=== PATIENT | male | born 1990 | race Caucasian/White ===

== ENCOUNTER 2023-01-09 17:26 | Emergency (ER) | payer OTHER, SELFPAY ==
[2023-01-09 17:34] VITALS: BP 141/113; PULSE 88; RESP 16; TEMP 36.7; O2SAT 98
--- NOTE | 2023-01-09 17:37 | PC.NURSE ---
Pt is 4 days clean of Meth.
[2023-01-09 17:45] VITALS: BMI 29.8
--- NOTE | 2023-01-09 18:23 | ED_ITS ---
HPI - Anxiety General Chief Complaint: Anxiety Stated Complaint: panic attack, anxiety Time Seen by Provider: 01/09/23 18:05 Source: patient Mode of arrival: Ambulatory History of Present Illness HPI narrative: Patient is a 32-year-old male. Has a history of anxiety and also panic attacks. He does see a primary care doctor and also a psychiatrist. He is a prescription for hydroxyzine that he takes when he has panic attacks. He states earlier today he had what was consistent with 1 of his panic attacks. He did take some hydroxyzine. At the time my evaluation he feels like he is feeling much better. He does have history of methamphetamine abuse. He did smoke methamphetamine a couple days ago which is the 1st time that he is done this in approximately 60 days. Denies SI or HI. Related Data Previous Rx's Medication Instructions Recorded hydroxyzine HCl 25 mg tablet 25 mg PO TID PRN anxiety #20 tabs 01/09/23 Allergies Allergy/AdvReac Type Severity Reaction Status Date / Time Penicillins AdvReac Verified 01/09/23 17:39 Review of Systems Constitutional Constitutional: Reports system reviewed and no additional complaints, except as documented Psychiatric Psychiatric: Reports system reviewed and no additional complaints, except as documented Patient History Medical History Anxiety Methamphetamine abuse Exam Initial Vital Signs Initial Vital Signs: Vital Signs Temperature 98.0 F 01/09/23 17:34 Pulse Rate 88 01/09/23 17:34 Respiratory Rate 16 01/09/23 17:34 Blood Pressure 141/113 H 01/09/23 17:34 Pulse Oximetry 98 01/09/23 17:34 Oxygen Delivery Method Room Air 01/09/23 17:34 Const General: cooperative, comfortable and No ill appearing [facility] Head: normal to inspection Resp Effort & Inspection: normal respiratory effort Cardio Rate: regular rate Psych Other: Patient is alert oriented. Calm. Not suicidal. Course Orders Ordered: ED Orders 01/09/23 17:39 Consult to EXPLOSIVE ORDNANCE TECHNICIAN - Director Of Planning Stat Discontinued Medications Hydroxyzine Pamoate (Hydroxyzine Pamoate 25 Mg Capsule) 25 mg PO NOW ONE Stop: 01/09/23 18:26 Last Admin: 01/09/23 18:36 Dose: 25 mg Documented By: AT Vital Signs Vital signs: Vital Signs - 8 hr 01/09/23 17:34 Temperature 98.0 F Pulse Rate 88 Respiratory Rate 16 Blood Pressure 141/113 H Pulse Oximetry 98 Oxygen Delivery Method Room Air MDM - Anxiety MDM Narrative Medical decision making narrative: Patient is calm. He states he is feeling much better. He feels like the hydroxyzine that he took maybe working although he has a acute could potentially use more. He was given a dose here in the ER. He requests a refill of his hydroxyzine. He does have a primary doctor and also a mental health provider. No indication for admission to the hospital. No indication for further workup here in the emergency department. He states that this feels very much like prior panic attacks. He was given return precautions and follow-up instructions. He expressed understanding and agreement. Discharge Plan Departure Patient Disposition: Home Clinical Impression: Panic disorder Instructions: Anxiety and Panic Attacks (Alternative Therapy) Activity Restrictions/Additional Instructions: Recommend that you keep all of your scheduled medical appointments. I do recommend that you contact your psychiatrist and also your primary doctor about your panic attacks. Return to the emergency department for new or worsening symptoms. Prescriptions: New hydroxyzine HCl 25 mg tablet 25 mg PO TID PRN (Reason: anxiety) Qty: 20 0RF Stand Alone Forms: Patient Portal/API
[2023-01-09] MEDS: hydrOXYzine pamoate 25 MG CAPSULE PO (18:36)
== END 2023-01-09 18:40 | disposition home or self-care (01) ==
PROVIDERS: Emergency Provider Emergency Medicine
DX: F41.0 Panic disorder [episodic paroxysmal anxiety] (principal)
CPT/HCPCS: 99283

== ENCOUNTER 2024-09-26 08:43 | Emergency (ER) | payer OTHER, SELFPAY ==
[2024-09-26 08:43] VITALS: BP 150/88; PULSE 122; RESP 18; TEMP 36.3; O2SAT 97; BMI 31.7
--- NOTE | 2024-09-26 08:48 | PC.NURSE ---
pt belongings locked up in cabinet with pt label sticker
--- NOTE | 2024-09-26 09:01 | PC.NURSE ---
Addendum entered by Karina Leos CNA 09/26/24 09:25: pt states there is pine needles everywhere and I just flushed them in the drain Addendum entered by Karina Leos CNA 09/26/24 09:05: pt states move that box of food informed pt that it was a tissue box pt states I don't care move it it's bothering me this sitter remains at bedside Original Note: pt states I hear people talking shit over there that's hilarious sandoval go over there and beat there fxnylaing marcelina
--- NOTE | 2024-09-26 09:15 | DI.RAD.S_ITS ---
PROCEDURE: XR ANKLE RT MIN 3V INDICATIONS: ankle pain, red/scabs, eval for osteo/fx/FB TECHNIQUE: 3 views of the ankle were acquired. COMPARISON: None. FINDINGS: Bones: Plate and screw fixation of the lateral malleolus without hardware fracture or evidence of hardware complication. There is no concerning lytic lesions with erosions of the bone. No fractures or dislocations. Ankle mortise is normally aligned. No suspicious bony lesions. Well corticated osseous fragment adjacent to the medial malleolus, sequela of remote injury. Mild tibiotalar osteophytes Soft tissues: No tibiotalar joint effusion. Achilles tendon appears normal. IMPRESSION: ORIF of the lateral ankle without evidence of hardware complication Dictated by: Clark Thayer M.D. on 09/26/2024 at 8:41 Approved by: Clark Thayer M.D. on 09/26/2024 at 8:42
[2024-09-26 09:30] LABS: Add Manual Diff / Slide Review NO; Basophils Absolute Auto 100 /uL (0-100); Basophils Percent Auto 0.8 % (0-2); Eosinophils Absolute Auto 0 /uL (0-450); Eosinophils Percent Auto 0.3 % (2-4); Hematocrit 36.8 % (41-53); Hemoglobin 12.5 g/dL (13.5-17.5); Lymphocytes Absolute Auto 2000 /uL (1100-4500); Mean Corpuscular Hemoglobin 31.8 PG (26-34); Mean Corpuscular Volume 93.5 fL (80-100); Monocytes Absolute Auto 1300 /uL (0-900); Monocytes Percent Auto 10.3 % (3-14); Neutrophils Absolute Auto 9000 /uL (1500-7000); Neutrophils Percent Auto 72.6 % (50-75); Platelet Count 386 X10^3/uL (150-400); Red Blood Cell Count 3.94 X10^6/uL (4.5-5.9); Red Cell Distribution Width 13.8 % (11.6-14.8); White Blood Cell Count 12.4 X10^3/uL (4.5-11.0)
--- NOTE | 2024-09-26 09:36 | ED.PSYCH ---
HPI - Psych <Nabil Lopez MD - Last Filed: 09/27/24 21:16> General Chief Complaint: Psychiatric Symptoms Stated Complaint: psychotic episode Time Seen by Provider: 09/26/24 08:57 Source: patient and EMS Mode of arrival: EMS History of Present Illness HPI Narrative: 34-year-old male brought by police department to local psych facility, at psychiatric facility last couple of hours, agitated, non directable, complains of right ankle pain with sores, complains of sensation that something is ?coming out of my abdomen. No nausea or vomiting. No fevers or chills. Previously patient has been taking Effexor, in the past has taken Prozac, thinks that hydroxyzine does not work well for him. Denies thoughts of hurting himself or others. Social history: Patient states that he is most recently [facility], previously having been homeless, apparently had been in [place] and [facility] prior. Related Data Previous Rx's Medication Instructions Recorded hydroxyzine HCl 25 mg tablet 25 mg PO TID PRN anxiety #20 tabs 01/09/23 bacitracin 500 unit/gram topical 1 applic topical TID 7 days #30 09/26/24 ointment grams fluoxetine 20 mg capsule (Prozac) 20 mg PO DAILY #7 caps 09/27/24 Allergies Allergy/AdvReac Type Severity Reaction Status Date / Time Penicillins AdvReac Verified 09/26/24 08:57 Patient History <Nabil Lopez MD - Last Filed: 09/27/24 21:16> Medical History Anxiety Methamphetamine abuse Social History Smoking Status: Never smoker Smoking Status: Never smoker Exam <Nabil Lopez MD - Last Filed: 09/27/24 21:16> Narrative Exam Narrative: GENERAL: Well-developed patient, in mild distress. Pacing in room, agitated but directable HEAD: Atraumatic. Normocephalic. EYES: Pupils equal round and reactive. Extraocular motions intact. No scleral icterus. No injection or drainage. ENT: Nose without bleeding, purulent drainage. Throat without erythema, tonsillar hypertrophy or exudate. Airway patent. NECK: Trachea midline. Non tender CARDIOVASCULAR: Regular rate and rhythm without murmurs, gallops, or rubs. RESPIRATORY: Clear to auscultation. Breath sounds equal bilaterally. No wheezes, rales, or rhonchi. GASTROINTESTINAL: Abdomen soft, non-tender, nondistended. EXTREMITIES: Old appearing scabs medial and lateral right ankle area, with slight erythema to dorsum of foot, no obvious nail/intertriginous lesions right foot. No lymphangitic streaking foreleg, foreleg without obvious swelling. Ambulatory weight-bearing on that right ankle without obvious pain or discomfort. BACK: Nontender without deformity or crepitance. No flank tenderness. NEURO: AOx3. Motor functions grossly nonfocal. Psychiatric: Psychomotor agitation noted, but directable at this time, no SI/HI symptoms. SKIN: Right ankle/foot area scab with slight dorsum foot erythema noted. Initial Vital Signs Initial Vital Signs: Vital Signs Temperature 97.4 F L 09/26/24 08:43 Pulse Rate 122 H 09/26/24 08:43 Respiratory Rate 18 09/26/24 08:43 Blood Pressure 150/88 H 09/26/24 08:43 Pulse Oximetry 97 09/26/24 08:43 Oxygen Delivery Method Room Air 09/26/24 08:43 <Jessica Bejarano DO - Last Filed: 09/27/24 18:07> Initial Vital Signs Initial Vital Signs: Vital Signs Temperature 97.4 F L 09/26/24 08:43 Pulse Rate 122 H 09/26/24 08:43 Respiratory Rate 18 09/26/24 08:43 Blood Pressure 150/88 H 09/26/24 08:43 Pulse Oximetry 97 09/26/24 08:43 Oxygen Delivery Method Room Air 09/26/24 08:43 Course <Nabil Lopez MD - Last Filed: 09/27/24 21:16> Orders Ordered: Discontinued Medications Bacitracin (Bacitracin Oint 0.9 Gm Pckt) 3 applic TOP NOW ONE Stop: 09/26/24 09:51 Last Admin: 09/26/24 09:55 Dose: 3 applic Documented By: YARY Fluoxetine HCl (Fluoxetine 10 Mg Capsule) 20 mg PO NOW ONE Stop: 09/26/24 09:31 Last Admin: 09/26/24 09:55 Dose: 20 mg Documented By: YARY Hydroxyzine HCl (Hydroxyzine Hcl 25 Mg Tablet) 50 mg PO NOW ONE Stop: 09/26/24 09:28 Last Admin: 09/26/24 09:55 Dose: 50 mg Documented By: YARY Ibuprofen (Ibuprofen 400 Mg Tablet) 800 mg PO NOW ONE Stop: 09/26/24 11:54 Last Admin: 09/26/24 12:04 Dose: 800 mg Documented By: YARY Ibuprofen (Ibuprofen 400 Mg Tablet) 800 mg PO NOW ONE Stop: 09/26/24 20:54 Last Admin: 09/26/24 21:21 Dose: 800 mg Documented By: Olanzapine (Olanzapine 2.5 Mg Tablet) 5 mg PO NOW ONE Stop: 09/26/24 09:04 Last Admin: 09/26/24 09:55 Dose: 5 mg Documented By: YARY Vital Signs Vital signs: Vital Signs - 8 hr 09/27/24 17:30 Pulse Rate 72 Respiratory Rate 18 Blood Pressure 129/62 Pulse Oximetry 99 Oxygen Delivery Method Room Air <Jessica Bejarano DO - Last Filed: 09/27/24 18:07> Orders Ordered: Discontinued Medications Bacitracin (Bacitracin Oint 0.9 Gm Pckt) 3 applic TOP NOW ONE Stop: 09/26/24 09:51 Last Admin: 09/26/24 09:55 Dose: 3 applic Documented By: YARY Fluoxetine HCl (Fluoxetine 10 Mg Capsule) 20 mg PO NOW ONE Stop: 09/26/24 09:31 Last Admin: 09/26/24 09:55 Dose: 20 mg Documented By: YARY Hydroxyzine HCl (Hydroxyzine Hcl 25 Mg Tablet) 50 mg PO NOW ONE Stop: 09/26/24 09:28 Last Admin: 09/26/24 09:55 Dose: 50 mg Documented By: YARY Ibuprofen (Ibuprofen 400 Mg Tablet) 800 mg PO NOW ONE Stop: 09/26/24 11:54 Last Admin: 09/26/24 12:04 Dose: 800 mg Documented By: YARY Ibuprofen (Ibuprofen 400 Mg Tablet) 800 mg PO NOW ONE Stop: 09/26/24 20:54 Last Admin: 09/26/24 21:21 Dose: 800 mg Documented By: Olanzapine (Olanzapine 2.5 Mg Tablet) 5 mg PO NOW ONE Stop: 09/26/24 09:04 Last Admin: 09/26/24 09:55 Dose: 5 mg Documented By: YARY Vital Signs Vital signs: Vital Signs - 8 hr 09/27/24 17:30 Pulse Rate 72 Respiratory Rate 18 Blood Pressure 129/62 Pulse Oximetry 99 Oxygen Delivery Method Room Air MDM - Psych <Nabil Lopez MD - Last Filed: 09/27/24 21:16> Lab Data Attestation: I reviewed the patient's lab results. Lab results narrative: White blood cell count 08800, hemoglobin 12.5, platelets adequate. Basic metabolic panel unremarkable. Liver functions normal. Ethanol, salicylate, acetaminophen levels negative. TSH negative. Urine dip negative. 09/26/24 09:17 09/26/24 09:17 Labs: Lab Results 09/26/24 09/26/24 Range/Units 09:17 10:27 WBC 12.4 H (4.5-11.0) X10^3/uL RBC 3.94 L (4.5-5.9) X10^6/uL Hgb 12.5 L (13.5-17.5) g/dL Hct 36.8 L (41-53) % MCV 93.5 (80-100) fL MCH 31.8 (26-34) PG MCHC 34.0 (30-36) % RDW 13.8 (11.6-14.8) % Plt Count 386 (150-400) X10^3/uL Neut % (Auto) 72.6 (50-75) % Lymph % (Auto) 16.0 L (25-40) % [place] % (Auto) 10.3 (3-14) % Eos % (Auto) 0.3 L (2-4) % Baso % (Auto) 0.8 (0-2) % Neut # (Auto) 9000 H (8563-4350) /uL Lymph # (Auto) 2000 (8657-5270) /uL [place] # (Auto) 1300 H (0-900) /uL Eos # (Auto) 0 (0-450) /uL Baso # (Auto) 100 (0-100) /uL Sodium 139 (137-145) mmol/L Potassium 4.1 (3.4-5.1) mmol/L Chloride 101 (98-107) mmol/L Carbon Dioxide 30 (22-32) mmol/L BUN 14 (9-20) mg/dL Creatinine 0.94 (0.66-1.25) mg/dL Estimated GFR > 60 (>60) mL/min BUN/Creatinine Ratio 14.9 (6-22) Glucose 108 H (70-100) mg/dL Calcium 10.1 (8.4-10.2) mg/dL Total Bilirubin 1.3 (0.2-1.3) mg/dL AST 43 (17-59) IU/L ALT 37 (<50) IU/L Alkaline Phosphatase 110 (38-126) U/L Total Protein 8.1 (6.3-8.2) g/dL Albumin 4.7 (3.5-5.0) g/dL Globulin 3.4 (1.7-4.1) g/dL Albumin/Globulin Ratio 1.4 (1.0-2.8) TSH 1.74 (0.47-4.68) uIU/mL Free T4 1.36 (0.78-2.19) ng/dL Urine RBC None seen (0-5/HPF) Urine WBC None seen (0-5/HPF) Ur Squamous Epith Cells 0-1 /hpf (0-5/HPF) Urine Bacteria None seen (None) Ur Culture Indicated? Cult not indicated Vol Urine Centrifuged 10ml (spun) Salicylates < 1.0 (<20) mg/dL U Opiates 300ng/mL cut Negative (Negative) Ur Oxycodone Screen Negative (Negative) Urine Methadone Screen Negative (Negative) Acetaminophen < 10 (10-30) ug/mL Ur Barbiturates Screen Negative (Negative) U Tricyclic Antidepress Negative (Negative) Ur Phencyclidine Scrn Negative (Negative) Ur Amphetamines Screen Positive H (Negative) U Methamphetamines Scrn Positive H (Negative) Ur MDMA Scrn (Ecstasy) Positive H (Negative) U Benzodiazepines Scrn Negative (Negative) Urine Cocaine Screen Negative (Negative) U Marijuana (THC) Screen Negative (Negative) Urine pH Normal (Normal) Urine Specific Edgar Normal (Normal) Ethyl Alcohol < 10 ( - 10) mg/dL Ur Creatinine Normal (Normal) Urine Dip Bedside Urine Glucose Negative Bedside Urine Bilirubin - Negative Bedside Urine Ketone +/- 5 Urine Specific Edgar 1.025 Bedside Urine Occult Blood - Negative Bedside Urine pH 6 Bedside Urine Protein +/- 15 Bedside Urine Urobilinogen - Negative Bedside Urine Nitrite - Negative Bedside Urine Leukocytes - Negative Esterase Imaging Data Extremity x-ray #1: Radiologist's Impression: [facility] [address] [place] [address] XRay Report Signed Patient: Paul Roman MR#: [id number] : 1990 Acct:[id number] Age/Sex: 34 / M Date of Service: 09/26/24 Loc: ED Accession Number: [id number] Procedure: XR ankle RT min 3V Ordering Provider: Nabil Lopez MD PROCEDURE: XR ANKLE RT MIN 3V INDICATIONS: ankle pain, red/scabs, eval for osteo/fx/FB TECHNIQUE: 3 views of the ankle were acquired. COMPARISON: None. FINDINGS: Bones: Plate and screw fixation of the lateral malleolus without hardware fracture or evidence of hardware complication. There is no concerning lytic lesions with erosions of the bone. No fractures or dislocations. Ankle mortise is normally aligned. No suspicious bony lesions. Well corticated osseous fragment adjacent to the medial malleolus, sequela of remote injury. Mild tibiotalar osteophytes Soft tissues: No tibiotalar joint effusion. Achilles tendon appears normal. IMPRESSION: ORIF of the lateral ankle without evidence of hardware complication Dictated by: Clark Thayer M.D. on 09/26/2024 at 8:41 Approved by: Clark Thayer M.D. on 09/26/2024 at 8:42 [facility] Narrative Medical decision making narrative: 34-year-old male with some kind of previous psychiatric history, has been on Effexor and Prozac in the past, apparently most recently living with his parents in [facility] area, agitation, he called the 911/police early this morning who took him to a local psychiatric holding facility [facility], had complaints of right ankle discomfort, sensation of something coming out of his abdomen, also has persistent agitation, but is directable, without current SI/HI symptoms. Here for further evaluation. Afebrile on triage, weight-bearing RLE noted with nonantalgic gait. X-ray right ankle requested per his preference. Screening psychiatric labs sent. technical services analyst consult when available later this morning. Patient requesting medications, he has responded to Prozac in the past, will give Prozac 20 mg dose oral. Initial oral Zyprexa ordered, he does not feel that that works for him, canceled. Oral Prozac 20mg ordered. X-ray right ankle series shows old ORIF but no acute changes, see radiology report. 1015, Serum screening labs unremarkable. Urine studies pending. Case discussed with manager social responsibility who will evaluate patient Urine drug screen positive for amphetamine, methamphetamine, MDMA/ecstasy. technical services analyst made aware 1430, [facility] facility declines for transfer, social sciences research scientist working on alternate behavioral health placement options. 1800, disposition unclear, possible transfer, social sciences research scientist still evaluating, [facility] Bejar[facility] 20[address] DR. Bejarano patient evaluated by social work records from [facility] save did reviewed. 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 Complaining of foot pain. He does have some abrasions on the right ankle no significant erythema or drainage. Bacitracin has been placed I have also given him a good bandage. He has been calm in the ED for 12 hours. Multiple places have declined for detox. Not meeting any involuntary criteria. Attempted to get [facility] to [facility] night however no buses are running taxi cab not available. Day detox said to call again in the morning for evaluation. Okay to stay the night and reassess in the a.m. 09/27/24, [address] Bejarano. Patient still here, known to me from yesterday, overnight interval history antibiotics applied to right ankle abrasions, x-rays yesterday showed ORIF hardware intact without acute changes. Radial Drill Press Set Up Operator has evaluated patient. Multiple places declined for detox, not meeting involuntary placement criteria. Possible placement Day, bed not available overnight but might be this morning. Reassume care. 1330, patient still motivated to have detox services, multiple services have declined. Awaiting further update from social sciences research scientist. 1545, social sciences research scientist reports current evaluation [facility] await call back update 1700, manager social responsibility update for plan. Patient will follow up at [facility] treatment center at [facility] who occurring [facility] this week. Patient will be discharged home today with friend and [facility], who will transport him to the residential center. Prozac 7 day prescription to be sent to his [facility] pharmacy in [place]. <Jessica Bejarano, DO - Last Filed: 09/27/24 18:07> Lab Data Labs: Lab Results 09/26/24 09/26/24 Range/Units 09:17 10:27 WBC 12.4 H (4.5-11.0) X10^3/uL RBC 3.94 L (4.5-5.9) X10^6/uL Hgb 12.5 L (13.5-17.5) g/dL Hct 36.8 L (41-53) % MCV 93.5 (80-100) fL MCH 31.8 (26-34) PG MCHC 34.0 (30-36) % RDW 13.8 (11.6-14.8) % Plt Count 386 (150-400) X10^3/uL Neut % (Auto) 72.6 (50-75) % Lymph % (Auto) 16.0 L (25-40) % [place] % (Auto) 10.3 (3-14) % Eos % (Auto) 0.3 L (2-4) % Baso % (Auto) 0.8 (0-2) % Neut # (Auto) 9000 H (4331-0051) /uL Lymph # (Auto) 2000 (3137-4503) /uL [place] # (Auto) 1300 H (0-900) /uL Eos # (Auto) 0 (0-450) /uL Baso # (Auto) 100 (0-100) /uL Sodium 139 (137-145) mmol/L Potassium 4.1 (3.4-5.1) mmol/L Chloride 101 (98-107) mmol/L Carbon Dioxide 30 (22-32) mmol/L BUN 14 (9-20) mg/dL Creatinine 0.94 (0.66-1.25) mg/dL Estimated GFR > 60 (>60) mL/min BUN/Creatinine Ratio 14.9 (6-22) Glucose 108 H (70-100) mg/dL Calcium 10.1 (8.4-10.2) mg/dL Total Bilirubin 1.3 (0.2-1.3) mg/dL AST 43 (17-59) IU/L ALT 37 (<50) IU/L Alkaline Phosphatase 110 (38-126) U/L Total Protein 8.1 (6.3-8.2) g/dL Albumin 4.7 (3.5-5.0) g/dL Globulin 3.4 (1.7-4.1) g/dL Albumin/Globulin Ratio 1.4 (1.0-2.8) TSH 1.74 (0.47-4.68) uIU/mL Free T4 1.36 (0.78-2.19) ng/dL Urine RBC None seen (0-5/HPF) Urine WBC None seen (0-5/HPF) Ur Squamous Epith Cells 0-1 /hpf (0-5/HPF) Urine Bacteria None seen (None) Ur Culture Indicated? Cult not indicated Vol Urine Centrifuged 10ml (spun) Salicylates < 1.0 (<20) mg/dL U Opiates 300ng/mL cut Negative (Negative) Ur Oxycodone Screen Negative (Negative) Urine Methadone Screen Negative (Negative) Acetaminophen < 10 (10-30) ug/mL Ur Barbiturates Screen Negative (Negative) U Tricyclic Antidepress Negative (Negative) Ur Phencyclidine Scrn Negative (Negative) Ur Amphetamines Screen Positive H (Negative) U Methamphetamines Scrn Positive H (Negative) Ur MDMA Scrn (Ecstasy) Positive H (Negative) U Benzodiazepines Scrn Negative (Negative) Urine Cocaine Screen Negative (Negative) U Marijuana (THC) Screen Negative (Negative) Urine pH Normal (Normal) Urine Specific Edgar Normal (Normal) Ethyl Alcohol < 10 ( - 10) mg/dL Ur Creatinine Normal (Normal) Urine Dip Bedside Urine Glucose Negative Bedside Urine Bilirubin - Negative Bedside Urine Ketone +/- 5 Urine Specific Edgar 1.025 Bedside Urine Occult Blood - Negative Bedside Urine pH 6 Bedside Urine Protein +/- 15 Bedside Urine Urobilinogen - Negative Bedside Urine Nitrite - Negative Bedside Urine Leukocytes - Negative Esterase MDM Narrative Medical decision making narrative: 34-year-old male with some kind of previous psychiatric history, has been on Effexor and Prozac in the past, apparently most recently living with his parents in [facility] area, agitation, he called the 911/police early this morning who took him to a local psychiatric holding facility [facility], had complaints of right ankle discomfort, sensation of something coming out of his abdomen, also has persistent agitation, but is directable, without current SI/HI symptoms. Here for further evaluation. Afebrile on triage, weight-bearing RLE noted with nonantalgic gait. X-ray right ankle requested per his preference. Screening psychiatric labs sent. technical services analyst consult when available later this morning. Patient requesting medications, he has responded to Prozac in the past, will give Prozac 20 mg dose oral. Initial oral Zyprexa ordered, he does not feel that that works for him, canceled. Oral Prozac 20mg ordered. X-ray right ankle series shows old ORIF but no acute changes, see radiology report. 1015, Serum screening labs unremarkable. Urine studies pending. Case discussed with manager social responsibility who will evaluate patient Urine drug screen positive for amphetamine, methamphetamine, MDMA/ecstasy. technical services analyst made aware 1430, [facility] facility declines for transfer, social sciences research scientist working on alternate behavioral health placement options. 1800, disposition unclear, possible transfer, social sciences research scientist still evaluating, [facility]. Bejarano 2039 DR. Bejarano patient evaluated by social work records from [facility] save did reviewed. 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 Complaining of foot pain. He does have some abrasions on the right ankle no significant erythema or drainage. Bacitracin has been placed I have also given him a good bandage. He has been calm in the ED for 12 hours. Multiple places have declined for detox. Not meeting any involuntary criteria. Attempted to get [facility] to [facility] night however no buses are running taxi cab not available. Day detox said to call again in the morning for evaluation. Okay to stay the night and reassess in the a.m. 09/27/24, 0700, Lopez. Signout from Dr Bejarano. Patient still here, known to me from yesterday, overnight interval history antibiotics applied to right ankle abrasions, x-rays yesterday showed ORIF hardware intact without acute changes. Radial Drill Press Set Up Operator has evaluated patient. Multiple places declined for detox, not meeting involuntary placement criteria. Possible placement Day, bed not available overnight but might be this morning. Reassume care. 1330, patient still motivated to have detox services, multiple services have declined. Awaiting further update from social sciences research scientist. 1545, social sciences research scientist reports current evaluation [facility] await call back update 1700, manager social responsibility update for plan. Patient will follow up at [facility] who [facility] treatment center this week. Patient will be discharged home today with friend and [facility], who will transport him to the residential center. Prozac 7 day prescription to be sent to his [facility] in [place]. Discharge Plan Departure Patient Disposition: Home Clinical Impression: Agitation, Substance abuse Instructions: DI for Psychosis Activity Restrictions/Additional Instructions: Mr. Roman, You had anxiety and agitation, requests for detox services, urine tox screen was positive for methamphetamine and amphetamine and MDMA/ecstasy. You were given antianxiety medications while in the emergency department, you had agitation that apparently caused [facility] to have you come here for further evaluation here. They did not want to back to their facility. For the last 2 days there have been attempts to have you find inpatient treatment centers, not felt to be a candidate. We did not find reason to admit you medically. Eventually social sciences research scientist was able to arrange outpatient treatment plan with you. Follow up with [facility] this week. Discharged home with friend with whom you will stay in [facility], who will transport you to residential treatment [place] this week. Prozac 20 mg daily for 7 days prescribed for discharge, which you had reported on 1st arrival was helpful for you in the past. Further treatment as per residential program. Prescription sent to your pharmacy in [place]. Follow up with residential treatment [place] as above. Return to this/nearest emergency department for any change worsening symptoms or any concerns prior Prescriptions: New bacitracin 500 unit/gram ointment 1 applic topical TID 7 Days Qty: 30 0RF fluoxetine [Prozac] 20 mg capsule 20 mg PO DAILY Qty: 7 0RF No Action hydroxyzine HCl 25 mg tablet 25 mg PO TID PRN (Reason: anxiety) Qty: 20 0RF Stand Alone Forms: Patient Portal/API/Survey
[2024-09-26 09:38] LABS: Acetaminophen < 10 ug/mL (10-30); Alanine Aminotransferase 37 IU/L (<50); Albumin 4.7 g/dL (3.5-5.0); Albumin Globulin Ratio 1.4 (1.0-2.8); Alkaline Phosphatase 110 U/L (38-126); Aspartate Aminotransferase 43 IU/L (17-59); BUN Creatinine Ratio 14.9 (6-22); Bilirubin Total 1.3 mg/dL (0.2-1.3); Blood Urea Nitrogen 14 mg/dL (9-20); Calcium 10.1 mg/dL (8.4-10.2); Carbon Dioxide 30 mmol/L (22-32); Chloride 101 mmol/L (98-107); Estimated Glomerular Filt Rate > 60 mL/min (>60); Ethanol (ETOH) < 10 mg/dL; Globulin 3.4 g/dL (1.7-4.1); Glucose 108 mg/dL (70-100); HEMOLYSIS < 15 (0-50); Potassium 4.1 mmol/L (3.4-5.1); Salicylate < 1.0 mg/dL (<20); Sodium 139 mmol/L (137-145); Total Protein 8.1 g/dL (6.3-8.2)
[2024-09-26] MEDS: OLANZapine 2.5 MG TABLET 5 MG PO (09:55)
[2024-09-26] MEDS: FLUoxetine 10 MG CAPSULE 20 MG PO (09:55)
[2024-09-26] MEDS: hydrOXYzine HCL 25 MG TABLET 50 MG PO (09:55)
[2024-09-26] MEDS: BACITRACIN OINT 0.9 GM PCKT 3 APPLIC TOP (09:55)
[2024-09-26 10:07] LABS: Free T4, Direct Thyroxine 1.36 ng/dL (0.78-2.19)
[2024-09-26 10:21] LABS: Thyroid Stimulating Hormone 1.74 uIU/mL (0.47-4.68)
[2024-09-26 10:36] LABS: UR Morphine/Opiate cutoff 300 Negative (Negative); Ur Creatinine Normal (Normal); Ur Specific Gravity Normal (Normal); Urine Amphetamines Positive (Negative); Urine Barbiturates Negative (Negative); Urine Benzodiazepines Negative (Negative); Urine Cocaine Negative (Negative); Urine MDMA Positive (Negative); Urine Methadone Negative (Negative); Urine Methamphetamines Positive (Negative); Urine Oxycodone Negative (Negative); Urine Phencyclidine Negative (Negative); Urine Tetrahydrocannabinol Negative (Negative); Urine Tricyclic Antidepressant Negative (Negative); Urine pH Normal (Normal)
[2024-09-26 10:43] LABS: Urine Volume 10mL (spun)
[2024-09-26 10:45] LABS: Bacteria Urine None Seen; Culture Indicated Urine Cult Not Indicated; RBC Urine None Seen (0-5/HPF); Squamous Epithelial Cell Urine 0-1 /HPF (0-5/HPF); WBC Urine None Seen (0-5/HPF)
[2024-09-26] MEDS: IBUPROFEN 400 MG TABLET 800 MG PO ×2 (12:04→21:21)
--- NOTE | 2024-09-26 12:45 | PC.NURSE ---
spoke with pharmacy - [facility]. Reviewed with her patients home med list ([facility] list updated) Abilify/Aripiprazole can be crushed; also available as ODT formula - [facility] can order it and have by tomorrow 3pm as long as it is in stock will be ordered into pharmacy if prescribed Fluoxetine if tablet form can be crushed, take in applesauce Hydroxyzine HCL can be crushed, take in applesauce Alprazolam can be crushed placed in cheek - patient states did not help Nortiptyline tab/cap cannot be crushed -- But -- Oral Solution is available and PCP or behavioral health could change to that formulation/RX and pharmacy could order it to dispense. Carbamezipine ER cannot crush --- the chewable tablet Carbamezpine was prescibed by [facility] recently, Med not picked up by patient. Extensive education provided to patient about medications that can be crushed how they can be taken. Educated patient on use of ODT Abillify and that it does not require swallowing. Patient still states I cannot swallow Managing secretions, no drooling noted. Spitting into blue emesis bag frequently when staff in room with patient but if no staff in room not observed spitting into emesis bag by staff at nursing station.
[2024-09-26 12:54] VITALS: BP 121/62; PULSE 94; RESP 18; O2SAT 99
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
--- NOTE | 2024-09-26 14:19 | CM.SWNOTE ---
Addendum entered by MK Cardozo 09/26/24 19:17: DIRECTOR MATERNAL CHILD provided [facility] halfway resources, [facility] contact (for ESMER assessment and referral to residential treatment) and [facility] number for crisis intervention/assessment. Addendum entered by MK Cardozo 09/26/24 18:30: Detox bed search continued: 1630: DIRECTOR MATERNAL CHILD calls [facility], it is reported that pt is still under review. Pt completed phone screening with Intake [facility]. 1830: DIRECTOR MATERNAL CHILD calls [facility], it is reported that pt is declined, He is above our level of care. 1600: DIRECTOR MATERNAL CHILD calls [facility] , waited for 10 minutes on hold, could not reach [employer]. 1730: DIRECTOR MATERNAL CHILD calls [facility] , waited for 7 minutes on hold, could not reach [employer]. 1835: DIRECTOR MATERNAL CHILD calls [facility], waited for 10 minutes on hold, could not reach [employer]pper. 1840: DIRECTOR MATERNAL CHILD calls [facility] and created profile for pt for [facility] team. 1845: DIRECTOR MATERNAL CHILD reviewed the above with pt. Pt is motivated for ESMER treatment but would need a ESMER assessment. Pt does not have a safe location to stay until able to be assessed. 1849: DIRECTOR MATERNAL CHILD calls pt mother, Mare, ph# [phone], per pt permission. Mare states she will not be able to take pt in after discharge from hospital until after ESMER treatment. 1850: DIRECTOR MATERNAL CHILD calls pt friend, Nabila ph# [phone], per pt permission. Nabila states she will be able to assist with transport to detox but cannot take him in until ESMER assessment. Gave [facility] number in case pt discharges from hospital and would need MH evaluation emergently. 1905: DIRECTOR MATERNAL CHILD calls [facility], it is reported they have available beds. DIRECTOR MATERNAL CHILD sent packet for review. They are requesting phone screening with patient after they receive paperwork. DIRECTOR MATERNAL CHILD forwarded number to pt RN to assist with coordination. Plan: Pending acceptance at detox/inpatient facility for BH/ESMER treatment. Tish Mora [facility] Original Note: ED DIRECTOR MATERNAL CHILD Note: ED DIRECTOR MATERNAL CHILD initiated bed search for dual dx treatment with detox. DIRECTOR MATERNAL CHILD calls [facility], it was reported that there are beds available. DIRECTOR MATERNAL CHILD sent packet for review. DIRECTOR MATERNAL CHILD calls [facility], it was reported that there are male beds available. DIRECTOR MATERNAL CHILD sent packet for review. DIRECTOR MATERNAL CHILD calls [facility], it was reported that patient is deemed to need higher level of care for psych issues and would have to decline the referral. Plan: Pending acceptance at detox/inpatient facility for BH/ESMER treatment. ADITI Aponte
--- NOTE | 2024-09-26 19:49 | PC.NURSE ---
PLANETARIUM TECHNICIAN NOTE: [facility]. Patient will need to call in the Am for availability.
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
[2024-09-27 06:40] VITALS: BP 109/64; PULSE 84; RESP 18; O2SAT 97
--- NOTE | 2024-09-27 06:41 | PC.NURSE ---
Pt slept most of shift when obtaining vitals at 0640 pt asked again for a detox facility. Advised pt that we will contact [facility] detox after breakfast.
--- NOTE | 2024-09-27 10:03 | PC.NURSE ---
RN made a call to [facility] detox intake around 0830. Pt did intake call over the phone and intake person said they will call back.
--- NOTE | 2024-09-27 11:34 | CM.SWNOTE ---
Addendum entered by MK Cardozo 09/27/24 17:20: Discharge Plan Continued: 1500: FINANCIAL ACCOUNTANT connected with [facility] CM, Ann Kruger ph#[phone] and confirmed that pt is still in the process of being admitted at [facility], will NOT be admitted on this date. Discharge plans to the community will have to be completed. FINANCIAL ACCOUNTANT agreed to complete [facility] PRe-Admission Assessment with patient in ED to also be added to clinical packet sent earlier in the day. FINANCIAL ACCOUNTANT completed pre-admission assessment and RAUDEL for [facility] with patient, faxed to fax#[phone] and gave copy to pt for his records. Per conversation with pt mother, she will not accept pt at her home until pt goes through treatment. Pt gave consent for this FINANCIAL ACCOUNTANT to contact friend, Nabila. Nabila agreeable to taking pt in for a night or two until he can go to [facility]. She has contacts for [facility], [facility], and [facility] if pt needs further intervention while waiting. FINANCIAL ACCOUNTANT coordinated with ED Provider for PRN anxiety medications to assist pt in case needed while waiting for treatment bed. Plan: Pt to discharge with friend, will follow up with [facility] for ESMER treatment acceptance. Tish Mora [facility] Addendum entered by MK Cardozo 09/27/24 14:33: ESMER Rehab Bed Search: 1200: FINANCIAL ACCOUNTANT sent referral to [facility]. 1200: FINANCIAL ACCOUNTANT sent referral to [facility]. 1320: [facility], declined. 1320: [facility] states they are reviewing but are also working on a waitlist for residential rehab, no admission available today. 1325: FINANCIAL ACCOUNTANT sent referral to [facility]. 1325: FINANCIAL ACCOUNTANT re-sent referral to [facility]. 1400: [facility] states their Twx Operator is out sick and cannot review until she returns. 1430: [facility], declined for inpatient rehab. 1430: FINANCIAL ACCOUNTANT attempted [facility] Children [facility], Vickie Mcgregor, and left another voice message. Per MD, Medically cleared for discharge, not actively withdrawing from methamphetamines. Would benefit from ESMER treatment but no accepting facility at this time, patient on waitlists at the following facilities: - [facility] - [facility] 1450: [facility] Children Teacher left a message stating she is working on residential treatment for patient and will return call when arranged. Plan: Pt to await acceptance at a residential rehab facility, currently attempting to find placement in community for patient while waiting. ADITI Aponte Original Note: ED FINANCIAL ACCOUNTANT Note: Review of events overnight and this morning: - Patient completed phone screening with [facility] and was notified that there are no beds available until the following day, 09/27/24 - Patient motherConstanza (ph# [phone]) in contact with [facility] Children Teacher (ph#[phone]) states optimistic acceptance at their facility. - 2240: Voice message received from [facility] to follow up on referral, requested a call back. 1125: FINANCIAL ACCOUNTANT called [facility] and it is reported that pt is declined due to their Provider screening utilizing intake from [facility]. Confirmed that there was never an acceptance at their facility. 1130: FINANCIAL ACCOUNTANT called pt motherConstanza, discussed above conversation with [facility], requested for this FINANCIAL ACCOUNTANT to speak with [facility] Children Teacher 1132: FINANCIAL ACCOUNTANT called [facility] Children Teacher, Vickie Mcgregor, and left a voice message. 1134: FINANCIAL ACCOUNTANT called [facility] and spoke with Intake, it is reported that pt no longer meets criteria for detox bed and they do not take pt insurance ([employer]) for ESMER treatment. Plan: Pending [facility] acceptance for ESMER treatment. ADITI Aponte
[2024-09-27 17:30] VITALS: BP 129/62; PULSE 72; RESP 18; O2SAT 99
--- NOTE | 2024-09-28 11:54 | CM.SWNOTE ---
ED Follow Up COMMUNITY OUTREACH DIRECTOR Note COMMUNITY OUTREACH DIRECTOR receives call from [facility] stating that they did not receive referral records for patient via fax. COMMUNITY OUTREACH DIRECTOR sends records via secure email. ADITI Conley
== END 2024-09-27 17:30 | disposition home or self-care (01) ==
PROVIDERS: Emergency Provider Emergency Medicine
DX: R45.1 Restlessness and agitation (principal); M25.571 Pain in right ankle and joints of right foot; F15.10 Other stimulant abuse, uncomplicated; Z98.890 Other specified postprocedural states
CPT/HCPCS: 36415; 73610; 80053; 80305; 80320; 80329; 81003; 81015; 84439; 84443; 85025; 99284; A9270; G0480